=== PATIENT | female | born 1960 | race Caucasian/White ===

== ENCOUNTER 2019-06-20 14:19 | Outpatient (CLI) | payer BC ==
--- NOTE | 2019-06-20 17:57 | CT ---
NONCONTRAST CT LUMBAR SPINE: 06/20/19 HISTORY: Low back pain. 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 History of prior back surgery in 2018. COMPARISON: None. FINDINGS: A dorsal column stimulator device is noted in place with leads entering the central canal at the T12- L1 level with the tip of the leads at the T9-8 level as noted on the hot mix operator view. There is no evidence of a fracture or subluxation. The vertebral body heights are within normal limit s. T12-L1 level: Central spinal canal and neural foramina are patent. L1-L2 level: Central spine canal and neural foramina are patent. L2-L3 level: There is no significant central canal or neural foraminal narrowing. L3-L4 level: Minimal disc osteophyte complex is present. There is no significant central canal or kwabena ral foraminal narrowing. L4-L5 level: There is no significant central spinal canal or neural foraminal narrowing. L5-S1 level: There is no central canal or neural foraminal narrowing. Paravertebral soft tissues have a normal appearance. Postsurgical changes related to right nephrectomy are identified. IMPRESSION: 1. No fracture or subluxation involving the lumbar spine. 2. No significant central canal or neural foraminal narrowing is seen at any level of the lumbar spine. 3. Dorsal column stimulator device in place as described above. 4. Right nephrectomy. POS: [facility]
== END 2019-06-20 14:20 | disposition home or self-care (01) ==
LOC: SCSCT 14:19
DX: M51.37 Other intervertebral disc degeneration, lumbosacral region (principal); Z90.5 Acquired absence of kidney
CPT/HCPCS: 72131

== ENCOUNTER 2024-05-04 12:36 | Outpatient (CLI) | payer BC, MEDICARE | END 2024-05-04 12:37 | disposition home or self-care (01) | LOC: BICCT 12:36 | PROVIDERS: ATTEND Pain Medicine Pain Medicine | DX: M46.1 Sacroiliitis, not elsewhere classified (principal); R10.2 Pelvic and perineal pain; Z98.1 Arthrodesis status | CPT/HCPCS: 72192 ==